=== PATIENT | male | born 1950 | race Caucasian/White ===

== ENCOUNTER 2016-09-27 15:16 | Emergency (ER) | payer OTHER ==
[~2016-09-27 15:16] MED LIST: ADVAIR INH; ADVAIR250 INH; ALBUTEROL INH; ASAB PO; ATENOLOL PO; BUSPAR PO; CLARIT10 PO; CO Q-1050 MG PO; KLONO5 PO; KLONOPIN PO; L40 PO; LOP50 PO; MCZ25 PO; PRAVACHOL80 MG PO; VITAMIN B-121000 MC1 SL
== END 2016-09-27 16:02 | disposition home or self-care (01) ==
LOC: ER 15:16
PROC: 2W3SXYZ Immobilization of Right Foot using Other Device (ICD-10-PCS; principal; 2016-09-27)
DX: S82.61XA Displaced fracture of lateral malleolus of right fibula, initial encounter for closed fracture (principal); S90.31XA Contusion of right foot, initial encounter; I10 Essential (primary) hypertension; I25.5 Ischemic cardiomyopathy; Z95.810 Presence of automatic (implantable) cardiac defibrillator; Z88.8 Allergy status to other drugs, medicaments and biological substances; Z79.899 Other long term (current) drug therapy; W19.XXXA Unspecified fall, initial encounter
CPT/HCPCS: 73610-RT; 73630-RT; 99283